=== PATIENT | female | born 1990 | race Caucasian/White ===

== ENCOUNTER 2023-12-27 15:30 | Emergency (ER) | payer MEDICAID ==
[~2023-12-27] VITALS: Ht 152.4 cm; Wt 71.7 kg
[2023-12-27 16:18] VITALS: BP 125/74; PULSE 65; RESP 15; TEMP 98.8; O2SAT 100
[2023-12-27] MEDS ORDERED: BENZ-300 PO (16:54)
[2023-12-27] MEDS ORDERED: AMOX500C25 PO (16:54)
[2023-12-27] MEDS ORDERED: IBUP-1842 PO (16:54)
[2023-12-27] MEDS: IBUPROFEN 600 MG TAB PO ONE (17:25)
[2023-12-27 18:09] LABS: FLU A ANTIGEN negative (NEGATIVE); FLU B ANTIGEN NEGATIVE (NEGATIVE)
== END 2023-12-27 17:25 | disposition home or self-care (01) ==
LOC: MED 15:30
DX: J02.9 Acute pharyngitis, unspecified (principal); R51.9 Headache, unspecified; Z20.822 Contact with and (suspected) exposure to COVID-19; Z79.899 Other long term (current) drug therapy
CPT/HCPCS: 87081; 99283